=== PATIENT | female | born 1970 | race Caucasian/White ===

== ENCOUNTER 2019-05-03 | Emergency (ER) | payer MEDICARE, MEDICAID ==
[2019-05-03 17:06] LABS: HEMATOCRIT 46.6 % (37.0-47.0); HEMOGLOBIN 15.9 g/dl (12.0-16.0); IMMATURE GRANULOCYTES 0.7 % (0.0-5.0); MEAN CELL VOLUME 82.3 fL CALC (80.0-100.0); MEAN CORPUSCULAR HGB 28.1 pG CALC (26.0-32.0); MEAN CORPUSCULAR HGB CONC 34.1 g/L CALC (32.0-36.0); NEUT# 15.16 thou/uL (2.00-7.15); RED BLOOD COUNT 5.66 mill/uL (4.20-5.60); RED CELL DISTRI WIDTH 13.6 % (11.5-15.5)
[2019-05-03 17:21] LABS: ALBUMIN 4.8 g/dL (3.2-5.0); ALKALINE PHOSPHATASE 124 u/l (38-126); ANION GAP 21 (6-22 (CALC)); BILIRUBIN, TOTAL 0.5 mg/dL (0.0-1.4); BUN 12 mg/dL (7-17); BUN/CREATININE RATIO 24 (12-20 (CALC)); CARBON DIOXIDE 17 mmol/l (22-30); CHLORIDE 97 mmol/l (95-108); CREATININE 0.5 mg/dL (0.5-1.0); ETHYL ALCOHOL 0 mg/dl (0-30); GFR > 60 ML/MIN (>=60 (CALC)); GFR FOR AFR.AMER. > 60 ML/MIN (>=60 (CALC)); POTASSIUM 4.3 mmol/l (3.5-5.1); SGOT/AST 31 u/l (14-36); SODIUM 131 mmol/l (137-146); TOTAL PROTEIN 8.4 g/dL (6.3-8.2)
[2019-05-03] MEDS ORDERED: PERCOCET 10/31 COMBO PO (17:59)
[2019-05-03] MEDS ORDERED: PRINIVIL5 MG PO (17:59)
[2019-05-03 18:24] LABS: URINE BILIRUBIN - DIPSTICK NEGATIVE (NEGATIVE); URINE BLOOD DIPSTICK SMALL (NEGATIVE); URINE COLOR YELLOW; URINE GLUCOSE - DIPSTICK 100 mg/dL (NEGATIVE); URINE KETONE NEGATIVE (NEGATIVE); URINE LEUK ESTERASE NEGATIVE (NEGATIVE); URINE PROTEIN - DIPSTICK 100 mg/dL (NEG-TRACE); URINE UROBILINOGEN - DIPSTICK 0.2 E.U./dL (0.2)
[2019-05-03 18:43] LABS: URINE NITRITE - DIPSTICK POSITIVE (Negative)
[2019-05-03 18:44] LABS: BARBITURATES NEGATIVE (NEGATIVE); COCAINE NEGATIVE (NEGATIVE); METHADONE NEGATIVE (NEGATIVE); OXCYCODONE NEGATIVE (NEGATIVE); TETRAHYDROCANNABIONOL POSITIVE (NEGATIVE); TRICYLIC ANTIDEPRESSANTS NEGATIVE (NEGATIVE)
[2019-05-03 18:50] LABS: URINE BACTERIA MANY hpf; URINE SQUAMOUS EPITHELIAL CELL FEW EPI/hpf (0-FEW)
[2019-05-03] MEDS ORDERED: KEFLEX500 M1 PO (20:51)
== END 2019-05-03 21:04 | disposition home or self-care (01) ==
DX: N39.0 Urinary tract infection, site not specified (principal); F19.10 Other psychoactive substance abuse, uncomplicated; I10 Essential (primary) hypertension; F17.210 Nicotine dependence, cigarettes, uncomplicated; B96.20 Unspecified Escherichia coli [E. coli] as the cause of diseases classified elsewhere

== ENCOUNTER 2020-10-20 00:10 | Observation (INO) | payer MEDICARE, MEDICAID ==
[~2020-10-20] VITALS: Ht 154.9 cm; Wt 56.3 kg
[~2020-10-20 00:10] MED LIST: KEFLEX500 M1 PO; PERCOCET 10/31 COMBO PO; PRINIVIL5 MG PO
--- NOTE | 2020-10-20 00:10 | NUR ---
PT TO ROOM VIA W/C. NOT VERY COOPERATIVE. DIFFICULTY TRIAGING BECAUSE SHE IS NOT PROVIDING HX.
--- NOTE | 2020-10-20 01:00 | NUR ---
PT DROWSY BUT WAKES EASILY. STATES SHE TOOK HER RESTORIL BEFORE COMING IN AND "IT'S NOT WORKING" BEFORE FALLING BACK TO SLEEP. PT REPORTS SHE IS UNABLE TO VOID. PER PT STRAIGHT CATHED BY Esther MCMAHON RN.
[2020-10-20 01:09] LABS: URINE BILIRUBIN - DIPSTICK NEGATIVE (NEGATIVE); URINE BLOOD DIPSTICK LARGE (NEGATIVE); URINE COLOR YELLOW; URINE GLUCOSE - DIPSTICK NEGATIVE (NEGATIVE); URINE KETONE 40 mg/dL (NEGATIVE); URINE PROTEIN - DIPSTICK 100 mg/dL (NEG-TRACE); URINE SPECIFIC GRAVITY >=1.030; URINE UROBILINOGEN - DIPSTICK 0.2 E.U./dL (0.2)
[2020-10-20 01:18] LABS: URINE LEUK ESTERASE SMALL (NEGATIVE); URINE NITRITE - DIPSTICK POSITIVE (Negative)
[2020-10-20 01:20] LABS: URINE BACTERIA MANY hpf; URINE RBC 25-50 RBC/hpf (0-5); URINE SQUAMOUS EPITHELIAL CELL FEW EPI/hpf (0-FEW); URINE WBC 50-100 WBC/hpf (0-5)
[2020-10-20 01:25] LABS: HEMATOCRIT 47.7 % (37.0-47.0); IMMATURE GRANULOCYTES 0.6 % (0.0-5.0); MEAN CELL VOLUME 85.3 fL CALC (80.0-100.0); MEAN CORPUSCULAR HGB 28.6 pG CALC (26.0-32.0); MEAN CORPUSCULAR HGB CONC 33.5 g/dL CAL (32.0-36.0); NEUT# 12.91 thou/uL (2.00-7.15); RED BLOOD COUNT 5.59 mill/uL (4.20-5.60); RED CELL DISTRI WIDTH 13.8 % (11.5-15.5)
[2020-10-20 01:37] LABS: ALBUMIN 4.6 g/dL (3.2-5.0); ALKALINE PHOSPHATASE 129 u/l (38-126); BILIRUBIN, TOTAL 0.7 mg/dL (0.0-1.4); BUN 16 mg/dL (7-17); BUN/CREATININE RATIO 29 (12-20 (CALC)); CHLORIDE 101 mmol/l (95-108); CREATININE 0.6 mg/dL (0.5-1.0); ETHYL ALCOHOL 0 mg/dl (0-30); GFR > 60 ML/MIN (>=60 (CALC)); GFR FOR AFR.AMER. > 60 ML/MIN (>=60 (CALC)); POTASSIUM 3.7 mmol/l (3.5-5.1); SGOT/AST 32 u/l (14-36); TOTAL PROTEIN 8.4 g/dL (6.3-8.2)
[2020-10-20 01:46] LABS: ANION GAP 19 (6-22 (CALC)); CARBON DIOXIDE 22 mmol/l (22-30); SODIUM 138 mmol/l (137-146)
--- NOTE | 2020-10-20 02:00 | NUR ---
PT TO RADIOLOGY FOR BRAIN CT.
--- NOTE | 2020-10-20 03:30 | NUR ---
PT TO RADIOLOGY FOR ABD CT.
--- NOTE | 2020-10-20 04:30 | NUR ---
PT STANDS UP AND URINATES ON FLOOR. STATES SHE COULD NOT MAKE IT IN TIME.
--- NOTE | 2020-10-20 05:03 | NUR ---
ABD CT RESULTED AND REVIEWED BY PHYSICIAN.
--- NOTE | 2020-10-20 05:15 | NUR ---
D-DIMER DRAWN AND SENT TO LAB.
--- NOTE | 2020-10-20 07:25 | NUR ---
PATIENT AWARE OF PLAN FOR ADMISSION AND WAIT TIME.
--- NOTE | 2020-10-20 07:48 | NUR ---
PT REPORT ABD PAIN. MD NOTIFIED, NO NEW ORDER RECEIVED.
[2020-10-20] MEDS ORDERED: TEMAZEPAM30 MG PO (07:56)
[2020-10-20] MEDS ORDERED: OXYCODONE15 MG PO (07:56)
--- NOTE | 2020-10-20 08:12 | NUR ---
PT. IN ED; ADMISSION QUESTIONARE COMPLETED. PT. IS DROWSY , BUT ABLE TO ANSWER QUESTIONS. PT. IS RESTING; NO DISTRESS NOTED. IV SITE PATENT AND BOLUS INFUSING ALONG WITH ANTIBIOTICS. NO MED LIST HERE WITH HER. PHARMACY CONSULT IN ORDERS FOR MED REC. BELONGINGS SHEET OBTAINED. CALL LIGHT IS IN REACH. WILL CONTINUE TO MONITOR.
[2020-10-20] MEDS ORDERED: ZESTRIL5 M1 PO (09:23)
[2020-10-20] MEDS ORDERED: FAMOTIDINE40 M1 PO (09:24)
[2020-10-20] MEDS ORDERED: EVISTA60 MG PO (09:24)
[2020-10-20] MEDS ORDERED: PROAIR HFA108 MCG/AC PO ×2 (09:25→09:28)
--- NOTE | 2020-10-20 11:17 | NUR ---
SPOKE WITH OBI PARADA AND NOTIFIED HIM OF NO PARAMATER FOR DYASTOLIC B/P FOR PRN LOPRESSOR; PER MD HE ORDERS OKAY TO ADMINISTER IV LOPRESSOR WITH B/P OF 155/102 AND HR 111; WILL REASSESS.
--- NOTE | 2020-10-20 12:15 | NUR ---
REPORT CALLED TO KILEY TORIBIO. PT RESTING IN STRETCHER WITH EYES CLOSED AND DENIES ANY NEEDS.
--- NOTE | 2020-10-20 12:54 | NUR ---
REPORT RECEIVED FROM NAMAN IN ED, PT TRANSPORTED TO ROOM VIA STRETCHER BY ED STAFF AND AMBULATED TO BED, ALERT AND ORIENTED, KEEPING HER EYES CLOSED, ORIENTED TO ROOM AND CALL ANDRE, IVF 0.9NS INFUSING VIA # 20 CATHETER IN RIGHT WRIST, NO C/O DISCOMFORT AT THIS TIME, BED LOCKED IN LOWEST POSITION AND CALL ANDRE IN REACH. PT ARRIVED IN ROOM @ 1254.
[2020-10-20 13:04] VITALS: BP 153/109
--- NOTE | 2020-10-20 13:10 | NUR ---
PATIENT TO MS IN STABLE CONDITION.
[2020-10-20 15:31] VITALS: BP 126/88
--- NOTE | 2020-10-20 15:44 | NUR ---
LEFT SIDE-LYING POSITION IN BED AT THIS TIME, C/O BEING HOT AND NEEDS HER ROOM COOLER BY ASKING IF THERE IS AC IN ROOM, SHE IS COVERED WITH 1 SHEET, 1 THICK BLANKET AND 1 THICK WINTER BLANKET FROM HOME, SHE IS ADVISED TO REMOVE COVERS IF SHE IS HOT BUT SHE JUST REPOSITIONED AND KEPT THE COVERS ON. SHE JUST JUMPED OUT OF BED, GRABBED THE IV POLE AND SPED IN BATHROOS STATING, "I GOT TO PEE, DONT BLAME ME I HAVE A WEAK BLADDER" SHE FURTHER WENT ON STATING THE PLACE IS TOO "F......ING HOT" THEN HURRIED BCK INTO BED DRAGGING THE POLE VIGOROUSLY AND THROWING HERSELF ON THE BED AND THIS TIME LEAVING THE COVERS OFF.
[2020-10-20 18:42] VITALS: BP 102/66
--- NOTE | 2020-10-20 20:00 | NUR ---
PATIENT RESTING IN BED AT THIS TIME WITH EYES CLOSED. RESPS ARE EVEN AND UNLABORED. APPEARS SLEEPING AT THIS TIME. IVF NS PATENT AND INFUSING VIA RIGHT WRIST AT 75CC/HR. CALL LIGHT IN REACH. WILL CONT TO MONITOR.
--- NOTE | 2020-10-20 23:49 | NUR ---
PATIENT CALLED REQUESTING SLEEP MEDICATION. RESTORIL 30MG PO GIVEN FOR SLEEP. RESTING IN BED ON PHONE. IVF PATENT AND INFUSING VIA RIGHT WRIST AT 75CC/HR. PROVIDED WITH GRAPE JUICE. SAFETY PRECAUTIONS REINFORCED. CALL LIGHT IN REACH. WILL CONT TO MONITOR.
--- NOTE | 2020-10-21 04:03 | NUR ---
PATIENT UP AND DOWN TO THE BR TO VOID. BACK IN BED. IVF NS PATENT AND INFUSING VIA RIGHT WRIST SITE AT 75CC/HR. SITE REMAINS HEALTHY AT THIS TIME. DENIES ANY NAUSEA AT THIS TIME-PATIENT HAS BEEN DRINKING GRAPE JUICE TONIGHT AND TOLERATED WELL. SAFETY PRECAUTIONS REINFORCED. CALL LIGHT IN REACH. WILL CONT TO MONITOR.
[2020-10-21 04:44] VITALS: BP 89/58
[2020-10-21 05:44] LABS: MEAN CELL VOLUME 86.9 fL CALC (80.0-100.0); MEAN CORPUSCULAR HGB 29.4 pG CALC (26.0-32.0); MEAN CORPUSCULAR HGB CONC 33.8 g/dL CAL (32.0-36.0); RED BLOOD COUNT 4.52 mill/uL (4.20-5.60); RED CELL DISTRI WIDTH 14.3 % (11.5-15.5)
[2020-10-21 05:54] LABS: HEMATOCRIT 39.3 % (37.0-47.0); HEMOGLOBIN 13.3 g/dl (12.0-16.0)
[2020-10-21 06:06] LABS: ANION GAP 12 (6-22 (CALC)); BUN 9 mg/dL (7-17); BUN/CREATININE RATIO 13 (12-20 (CALC)); CARBON DIOXIDE 24 mmol/l (22-30); CHLORIDE 104 mmol/l (95-108); CREATININE 0.7 mg/dL (0.5-1.0); GFR > 60 ML/MIN (>=60 (CALC)); GFR FOR AFR.AMER. > 60 ML/MIN (>=60 (CALC)); MAGNESIUM 1.8 mg/dL (1.6-2.3); POTASSIUM 3.2 mmol/l (3.5-5.1); SODIUM 137 mmol/l (137-146)
[2020-10-21 08:00] VITALS: BP 120/80
--- NOTE | 2020-10-21 08:00 | NUR ---
PT RESTING IN THE BED, AXOX3, IV INFUSING. C/O PAIN. EDUCATED ON MED SCHEDULE. REPOSITIOEND FOR COMOFT, SIDE RAILS UP CALL LIGHT IN REACH BED LOCKED IN LOW POSITION, ALL SAFTY MEASURS IN PLACE.
--- NOTE | 2020-10-21 10:00 | NUR ---
PT VOMITED 200CC OG EMISIS, MED PER ORDER, WILL CONTINUE TO MONITOR.
--- NOTE | 2020-10-21 11:15 | NUR ---
RESTING COMOFRTABLE IN THE BED NO DISTRESS NOTED. EDUCATED ON CT.-
--- NOTE | 2020-10-21 13:09 | NUR ---
PT VOMITNG NAUSEA MED GIVEN.
--- NOTE | 2020-10-21 13:51 | NUR ---
SURJIT FOR CT TO CALL FOR THE PT.
--- NOTE | 2020-10-21 15:13 | NUR ---
PT RESTING COMFORTABLE IN THE BED NO NAUSEA NO VOMITING NOTED AT THIS TIME.
[2020-10-21 16:02] VITALS: BP 180/80
--- NOTE | 2020-10-21 16:15 | NUR ---
ER CALLED TO START AN IV FOR THE PT .
--- NOTE | 2020-10-21 16:29 | NUR ---
PT IN XRAY DEPT, WAITING FOR IV START .
--- NOTE | 2020-10-21 16:56 | NUR ---
PT RETURNED FROM XRAY, CT DONE WITH CONTRAST. NEW # 20 IN THE LEFT AC. AMB TO THE BATH ROOM . VOIDED YELLOW URINE. NO NAUSEA NO VOMITING AT THIS TIME. BACK TO BED, IV INFUSING. NO COMPLAINTS VOICED AT THIS TIME.
--- NOTE | 2020-10-21 17:50 | NUR ---
RESTING IN THE BED WITH EYES CLOSED, NO NAUSEA NO VOMITING NOTED AT THIS TIME.
[2020-10-21 19:00] VITALS: BP 113/71
--- NOTE | 2020-10-21 20:51 | NUR ---
Received PT from day shift nurse. Vitals signs are stable. Pain medications given (See Emar). Educated Pt about medications, pain management, falls and safety precautions and plan of care.
--- NOTE | 2020-10-22 00:43 | NUR ---
HOURLY ROUNDING. PT OBSERVED SLEEP AND CALM. RE-EDUCATED ABOUT PLAN OF CARE, PAIN MEDICATIONS AND FALL PRECAUTIONS.
[2020-10-22 04:00] VITALS: BP 128/84
--- NOTE | 2020-10-22 04:29 | NUR ---
HOURLY ROUNDING. PT OBSERVED AWAKE AND ALERT. NO COMPLAINT ABOUT PAIN AT THIS TIME. RE-EDUCATED PT ABOUT MEDICATIONS AND PLAN OF CARE. VITALS ARE ATABLE.
[2020-10-22 07:57] VITALS: BP 140/82
--- NOTE | 2020-10-22 08:03 | NUR ---
RESTING IN THE BED, DENIES PAIN AT THIS TIME. IV INFUSING. STATES "I NEED TO GET HOME TODAY". EDUCATED ON IV ABT. EDUCATED ON LAB RESULTS. SITTING UP IN THE BED. IV INFUSING , CALL LIGHT IN REACH. BED LOCKED IN LOW POSITION, WILL CONTINUE TO MONIOTR THE PATIENT.
[2020-10-22 08:41] VITALS: BP 140/82
[2020-10-22] MEDS ORDERED: LEVAQUIN750 M1 PO (10:10)
[2020-10-22] MEDS ORDERED: METRONIDAZOL500 MG PO (10:11)
[2020-10-22] MEDS ORDERED: ZOFRAN4 MG/TAB PO (10:12)
--- NOTE | 2020-10-22 12:30 | NUR ---
HL REMOVED. DISCHARGE ORDERS GIVEN TO THE PT INSTRUCTED TO [employer] [facility] FROM [facility]. INSTRUCTED TO FOLLOW UP WITH PCP IN ONE WEEK. PT SIGNED THE DISCHARGE ORDERS. PT LEFT TO GO TO HER OWN HOME .
== END 2020-10-22 12:40 | disposition home or self-care (01) ==
LOC: ED 00:10 → ED-I 07:10 → ED 07:19 → ED-I 07:20 → MS2 07:20
PROVIDERS: Family Medicine; Nurse Practitioner; ADMIT Internal Medicine; ATTEND Internal Medicine
DX: J18.9 Pneumonia, unspecified organism (principal); J44.0 Chronic obstructive pulmonary disease with (acute) lower respiratory infection; N39.0 Urinary tract infection, site not specified; K52.9 Noninfective gastroenteritis and colitis, unspecified; I10 Essential (primary) hypertension; K21.9 Gastro-esophageal reflux disease without esophagitis; G89.4 Chronic pain syndrome; F15.10 Other stimulant abuse, uncomplicated; F12.10 Cannabis abuse, uncomplicated; F13.10 Sedative, hypnotic or anxiolytic abuse, uncomplicated; F17.200 Nicotine dependence, unspecified, uncomplicated; B96.20 Unspecified Escherichia coli [E. coli] as the cause of diseases classified elsewhere; Z85.830 Personal history of malignant neoplasm of bone; Z79.891 Long term (current) use of opiate analgesic; Z20.822 Contact with and (suspected) exposure to COVID-19
CPT/HCPCS: G0378; J1650; Q9967

== ENCOUNTER 2020-11-04 20:12 | Emergency (ER) | payer MEDICARE, MEDICAID ==
[~2020-11-04 20:12] MED LIST changes: +EVISTA60 MG PO; +FAMOTIDINE40 M1 PO; +LEVAQUIN750 M1 PO; +METRONIDAZOL500 MG PO; +OXYCODONE15 MG PO; +PROAIR HFA108 MCG/AC PO; +TEMAZEPAM30 MG PO; +ZESTRIL5 M1 PO; +ZOFRAN4 MG/TAB PO
[2020-11-04 20:58] LABS: HEMATOCRIT 43.1 % (37.0-47.0); HEMOGLOBIN 14.4 g/dl (12.0-16.0); IMMATURE GRANULOCYTES 0.2 % (0.0-5.0); MEAN CELL VOLUME 86.7 fL CALC (80.0-100.0); MEAN CORPUSCULAR HGB CONC 33.4 g/dL CAL (32.0-36.0); NEUT# 14.19 thou/uL (2.00-7.15); RED BLOOD COUNT 4.97 mill/uL (4.20-5.60); RED CELL DISTRI WIDTH 14.5 % (11.5-15.5)
[2020-11-04 21:09] LABS: ALBUMIN 4.9 g/dL (3.2-5.0); ALKALINE PHOSPHATASE 100 u/l (38-126); AMYLASE 88 u/l (30-110); ANION GAP 17 (6-22 (CALC)); BILIRUBIN, TOTAL 0.6 mg/dL (0.0-1.4); BUN 12 mg/dL (7-17); BUN/CREATININE RATIO 19 (12-20 (CALC)); CARBON DIOXIDE 25 mmol/l (22-30); CHLORIDE 100 mmol/l (95-108); CREATININE 0.7 mg/dL (0.5-1.0); ETHYL ALCOHOL 0 mg/dl (0-30); GFR > 60 ML/MIN (>=60 (CALC)); GFR FOR AFR.AMER. > 60 ML/MIN (>=60 (CALC)); LIPASE 59 u/l (23-300); MAGNESIUM 1.6 mg/dL (1.6-2.3); SGOT/AST 30 u/l (14-36); SODIUM 138 mmol/l (137-146)
[2020-11-04 22:29] LABS: URINE BILIRUBIN - DIPSTICK NEGATIVE (NEGATIVE); URINE BLOOD DIPSTICK LARGE (NEGATIVE); URINE COLOR YELLOW; URINE GLUCOSE - DIPSTICK NEGATIVE (NEGATIVE); URINE KETONE TRACE mg/dL (NEGATIVE); URINE LEUK ESTERASE NEGATIVE (NEGATIVE); URINE PROTEIN - DIPSTICK NEGATIVE (NEG-TRACE); URINE SPECIFIC GRAVITY 1.025; URINE UROBILINOGEN - DIPSTICK 0.2 E.U./dL (0.2)
[2020-11-04 22:35] LABS: URINE NITRITE - DIPSTICK NEGATIVE (Negative)
[2020-11-04 22:38] LABS: URINE SQUAMOUS EPITHELIAL CELL FEW EPI/hpf (0-FEW); URINE WBC 0-2 WBC/hpf (0-5)
[2020-11-04] MEDS ORDERED: PHENERGAN25 MG RE (22:47)
[2020-11-05 07:46] VITALS: BP 160/95
== END 2020-11-05 07:38 | disposition home or self-care (01) ==
LOC: ED 20:12
PROVIDERS: Family Medicine
DX: A08.4 Viral intestinal infection, unspecified (principal); I10 Essential (primary) hypertension; J44.9 Chronic obstructive pulmonary disease, unspecified; F41.9 Anxiety disorder, unspecified; F32.9 Major depressive disorder, single episode, unspecified; F17.200 Nicotine dependence, unspecified, uncomplicated; Z85.830 Personal history of malignant neoplasm of bone; Z20.822 Contact with and (suspected) exposure to COVID-19
CPT/HCPCS: Q9967

== ENCOUNTER 2021-01-06 06:31 | Emergency (ER) | payer MEDICARE, MEDICAID ==
[~2021-01-06] VITALS: Ht 154.9 cm; Wt 68.0 kg
[~2021-01-06 06:31] MED LIST changes: +PHENERGAN25 MG RE
[2021-01-06 07:12] LABS: HEMATOCRIT 47.5 % (37.0-47.0); IMMATURE GRANULOCYTES 0.2 % (0.0-5.0); MEAN CELL VOLUME 85.6 fL CALC (80.0-100.0); MEAN CORPUSCULAR HGB 28.8 pG CALC (26.0-32.0); MEAN CORPUSCULAR HGB CONC 33.7 g/dL CAL (32.0-36.0); NEUT# 13.55 thou/uL (2.00-7.15); RED BLOOD COUNT 5.55 mill/uL (4.20-5.60); RED CELL DISTRI WIDTH 13.8 % (11.5-15.5)
--- NOTE | 2021-01-06 07:56 | NUR ---
PT ASLEEP. CLEAR/DIM BBS. NAD. SPO2 ON RA 100. ELIZABETH BRONCHODILATOR THERAPY WELL.
[2021-01-06 08:02] LABS: ALBUMIN 5.1 g/dL (3.2-5.0); ALKALINE PHOSPHATASE 108 u/l (38-126); BILIRUBIN, TOTAL 0.6 mg/dL (0.0-1.4); BUN 14 mg/dL (7-17); BUN/CREATININE RATIO 20 (12-20 (CALC)); CARBON DIOXIDE 25 mmol/l (22-30); CHLORIDE 95 mmol/l (95-108); CREATININE 0.7 mg/dL (0.5-1.0); GFR > 60 ML/MIN (>=60 (CALC)); GFR FOR AFR.AMER. > 60 ML/MIN (>=60 (CALC)); LIPASE 165 u/l (23-300); SGOT/AST 23 u/l (14-36); SODIUM 134 mmol/l (137-146); TOTAL PROTEIN 9.1 g/dL (6.3-8.2)
[2021-01-06 08:03] LABS: ANION GAP 17 (6-22 (CALC)); POTASSIUM 3.1 mmol/l (3.5-5.1)
[2021-01-06 08:09] LABS: PROTHROMBIN TIME 10.4 SECONDS (9.0-12.5)
[2021-01-06 08:14] LABS: D-DIMER 0.54 mg/L (0.19-0.60)
[2021-01-06 09:19] LABS: URINE BILIRUBIN - DIPSTICK NEGATIVE (NEGATIVE); URINE BLOOD DIPSTICK LARGE (NEGATIVE); URINE COLOR YELLOW; URINE GLUCOSE - DIPSTICK NEGATIVE (NEGATIVE); URINE KETONE NEGATIVE (NEGATIVE); URINE LEUK ESTERASE TRACE (NEGATIVE); URINE PROTEIN - DIPSTICK 30 mg/dL (NEG-TRACE); URINE SPECIFIC GRAVITY 1.015; URINE UROBILINOGEN - DIPSTICK 0.2 E.U./dL (0.2)
[2021-01-06 09:23] LABS: URINE EPITHELIAL CELLS FEW EPI/hpf (0-FEW); URINE NITRITE - DIPSTICK NEGATIVE (Negative); URINE RBC 25-50 RBC/hpf (0-5); URINE WBC 0-2 WBC/hpf (0-5)
[2021-01-06 13:15] VITALS: BP 189/98
== END 2021-01-06 13:15 ==
LOC: ED 06:31
PROC: 02HV33Z Insertion of Infusion Device into Superior Vena Cava, Percutaneous Approach (ICD-10-PCS; principal; 2021-01-06)
PROC: B518ZZA Fluoroscopy of Superior Vena Cava, Guidance (ICD-10-PCS; 2021-01-06)
DX: R07.9 Chest pain, unspecified (principal); K52.9 Noninfective gastroenteritis and colitis, unspecified; I10 Essential (primary) hypertension; J44.9 Chronic obstructive pulmonary disease, unspecified; F41.9 Anxiety disorder, unspecified; F32.A Depression, unspecified; M54.9 Dorsalgia, unspecified; G89.29 Other chronic pain; M19.90 Unspecified osteoarthritis, unspecified site; F17.200 Nicotine dependence, unspecified, uncomplicated; Z85.830 Personal history of malignant neoplasm of bone; Z20.822 Contact with and (suspected) exposure to COVID-19
CPT/HCPCS: J3475; Q9967